=== PATIENT | female | born 2000 | race American Indian/Alaskan Native ===

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

== ENCOUNTER 2021-01-31 05:16 | Emergency (ER) | payer OTHER ==
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
[2021-01-31 08:11] LABS: HCG Qualitative,Urine Negative (Negative)
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
[2021-01-31 09:31] VITALS: BP 120/70
== END 2021-01-31 09:45 | disposition home or self-care (01) ==
LOC: ED 05:16
DX: S16.1XXA Strain of muscle, fascia and tendon at neck level, initial encounter (principal); S39.012A Strain of muscle, fascia and tendon of lower back, initial encounter; Z79.899 Other long term (current) drug therapy; V49.49XA Driver injured in collision with other motor vehicles in traffic accident, initial encounter; Y92.410 Unspecified street and highway as the place of occurrence of the external cause; Y93.89 Activity, other specified; Y99.8 Other external cause status
CPT/HCPCS: 72040; 72100; 81025